=== PATIENT | male | born 1945 | race African-American/Black ===

== ENCOUNTER 2021-09-25 19:22 | Emergency (ER) | payer MEDICARE ==
[~2021-09-25] VITALS: Ht 175.3 cm; Wt 97.2 kg
[2021-09-25 19:28] VITALS: BP 120/77
[2021-09-25] MEDS ORDERED: CEPH500C PO (20:09)
--- NOTE | 2021-09-25 20:09 | PHYS DOC ---
Past History Past Surgical History: No Surgical History, Other Adult General Chief Complaint Chief Complaint: OTHER COMPLAINTS HPI HPI Patient is an otherwise healthy 76-year-old male who presents to the emergency department with a chief complaint of wanting a tetanus shot. States he was fishing earlier this morning with his son and got a fishhook caught in his right index finger. States he did pull it out at home but is not up-to-date on his tetanus. Denies any pain. Review of Systems Review of Systems Review of systems otherwise unremarkable except noted in HPI Allergies Allergies Allergies Coded Allergies Type Severity Reaction Last Updated Verified No Known Drug Allergies 09/25/21 No Physical Exam Physical Exam Constitutional: Well developed, well nourished, no acute distress, non-toxic appearance. [] HENT: Normocephalic, atraumatic, Skin: Warm, dry, no erythema, no rash. [] Back: No tenderness, no CVA tenderness. [] Extremities: Small red dot on anterior right index finger in between the PIP and the DIP with no erythema or swelling, neurovascular exam intact Neurologic: Alert and oriented X 3, normal motor function, normal sensory fu nction, no focal deficits noted. [] Psychologic: Affect normal, judgement normal, mood normal. [] Current Patient Data Vital Signs Vital Signs Date Time Temp Pulse Resp B/P (MAP) Pulse Ox O2 Delivery O2 Flow Rate FiO2 09/25/21 19:28 88 18 120/77 (91) 97 Room Air EKG EKG [] Radiology/Procedures Radiology/Procedures [] Heart Score C/O Chest Pain: No Risk Factors: Risk Factors: DM, Current or recent (<one month) smoker, HTN, HLP, family history of CAD, obesity. Risk Scores: Risk Factors: DM, Current or recent (<one month) smoker, HTN, HLP, family his tory of CAD, obesity. Course & Med Decision Making Course & Med Decision Making Patient is a 76-year-old male who presents wanting a tetanus shot after getting a fishhook caught in his finger Vital signs nonconcerning. Physical exam noted above. Updated tetanus. Started on antibiotics. No need for any type of cleaning or repair as patient already cleaned and there was no injuries to repair Advised on symptom management at home. Advised on antibiotics. Advised to follow-up next week with primary care physician. Gave return precautions to the ED. Patient grateful, verbalized understanding and agreed with plan of discharge Dragon Disclaimer Draggael Disclaimer This electronic medical record was generated, in whole or in part, using a voice recognition dictation system. Departure Departure: Impression: Primary Impression: Finger injury Disposition: HOME / SELF CARE / HOMELESS Condition: STABLE Referrals: WARREN NEWSOME MD (PCP) Patient Instructions: Fish Hook Removal Additional Instructions: Thank you for coming into the emergency department tonight and allowing us to take care of you. Please read the attached information carefully to go over things we discussed. Please take antibiotics as prescribed and until gone. Please stay well-hydrated taking these antibiotics. Please follow-up next week with your primary care physician update on your ED visit. Please come back with new or concerning symptoms as we discussed. Scripts Cephalexin (KEFLEX) 500 Mg Capsule 1 CAP PO TID for wound for 3 Days, #9 CAP Prov: HILDA RODGERS MD 09/25/21 HILDA RODGERS MD September 25, 2021 20:09
[2021-09-25] MEDS ORDERED: DIPHTH,PERTUSS(ACELL),TET TOX 0.5 ML DISP.SYRIN. VAX IM ONE (20:30)
[2021-09-25] MEDS ORDERED: CEPHALEXIN 250 MG CAPSULE PO ONE (20:30)
== END 2021-09-25 20:22 | disposition home or self-care (01) ==
LOC: ER 19:22
DX: S69.91XA Unspecified injury of right wrist, hand and finger(s), initial encounter (principal); W22.8XXA Striking against or struck by other objects, initial encounter; Y93.89 Activity, other specified; Y92.89 Other specified places as the place of occurrence of the external cause; Y99.8 Other external cause status
CPT/HCPCS: 90471; 90715; 99283